=== PATIENT | male | born 2000 | race Hispanic/Latino ===

== ENCOUNTER 2022-03-11 23:13 | Inpatient (IN) | payer OTHER ==
[~2022-03-11] VITALS: Ht 188 cm; Wt 121.0 kg
[2022-03-12 00:37] LABS: HEMATOCRIT 43.7 % (42.0-52.0); HEMOGLOBIN 15.5 g/dl (13.5-17.5); MEAN CORPUSCULAR HEMOGLOBIN 29.9 pg (27.0-33.0); MEAN CORPUSCULAR HGB CONC 35.5 g/dl (32.0-36.5); MEAN CORPUSCULAR VOLUME 84.2 fl (80.0-96.0); PLATELET COUNT, AUTOMATED 282 10^3/uL (150-450); RED BLOOD COUNT 5.19 10^6/uL (4.30-6.10); WHITE BLOOD COUNT 8.5 10^3/uL (4.0-10.0)
[2022-03-12 00:41] LABS: AMPHETAMINES LEVEL URINE NEGATIVE (NEGATIVE); BARBITURATES URINE NEGATIVE (NEGATIVE); BENZODIAZEPINES URINE NEGATIVE (NEGATIVE); CANNABINOIDS URINE NEGATIVE (NEGATIVE); COCAINE METABOLITE URINE NEGATIVE (NEGATIVE); METHADONE URINE NEGATIVE (NEGATIVE); OPIATES URINE NEGATIVE (NEGATIVE); PHENCYCLIDINE URINE NEGATIVE (NEGATIVE)
[2022-03-12 01:10] LABS: RSV AMPLIFICATION NEGATIVE (NEGATIVE)
[2022-03-12 01:41] LABS: ACETAMINOPHEN LEVEL < 2.0 UG/ML (10.0-30.0); ALBUMIN 4.1 GM/DL (3.2-5.2); ALT/SGPT 30 U/L (12-78); BILIRUBIN,DIRECT 0.1 MG/DL (0.0-0.2); BILIRUBIN,TOTAL 0.5 MG/DL (0.2-1.0); BLOOD UREA NITROGEN 16 MG/DL (7-18); CALCIUM LEVEL 8.8 MG/DL (8.5-10.1); CARBON DIOXIDE LEVEL 23 MEQ/L (21-32); CHLORIDE LEVEL 109 MEQ/L (98-107); CREATININE FOR GFR 1.09 MG/DL (0.70-1.30); ETHYL ALCOHOL (ETHANOL) 0.003 % (0.000-0.010); GLUCOSE, FASTING 105 MG/DL (70-100); POTASSIUM SERUM 3.8 MEQ/L (3.5-5.1); SALICYLATE LEVEL < 1.7 MG/DL (5.0-30.0); SODIUM LEVEL 139 MEQ/L (136-145); TOTAL PROTEIN 7.7 GM/DL (6.4-8.2)
[2022-03-12] MEDS ORDERED: HOME MED LIST COMPLETE! XX SCH (06:20)
[2022-03-13] MEDS ORDERED: MAALOX 30 ML SUSP *UDC PO PRN (13:05)
[2022-03-13] MEDS ORDERED: IBUPROFEN 400MG TAB PO PRN (13:05)
[2022-03-13] MEDS ORDERED: OLANZapine ORAL DISINTEGRATING TAB 5MG PO PRN (13:05)
[2022-03-13] MEDS ORDERED: MOM 30ML SUSPENSION UDC PO PRN (13:05)
[2022-03-13 17:55] VITALS: BP 162/91
[2022-03-14 06:27] VITALS: BP 127/70
[2022-03-14] MEDS: VENLAFAXINE **XR** 37.5 MG CAPSULE PO SCH (11:05)
[2022-03-14 16:53] VITALS: BP 141/75
[2022-03-14] MEDS: traZODone 50 MG TAB PO PRN (23:02)
[2022-03-15 06:53] VITALS: BP 124/78
[2022-03-15] MEDS: VENLAFAXINE **XR** 37.5 MG CAPSULE PO SCH (08:51)
[2022-03-15 18:39] VITALS: BP 125/69
[2022-03-15] MEDS: traZODone 50 MG TAB PO PRN (23:01)
[2022-03-16 07:02] VITALS: BP 135/66
[2022-03-16] MEDS: VENLAFAXINE **XR** 75MG CAPSULE PO SCH (09:03)
[2022-03-16 16:19] VITALS: BP 126/71
[2022-03-17 06:30] VITALS: BP 142/93
[2022-03-17] MEDS: VENLAFAXINE **XR** 75MG CAPSULE PO SCH (09:12)
[2022-03-17 16:48] VITALS: BP 130/80
[2022-03-18] MEDS: traZODone 50 MG TAB PO PRN ×2 (00:04→23:05)
[2022-03-18 06:21] VITALS: BP 146/79
[2022-03-18] MEDS: VENLAFAXINE **XR** 75MG CAPSULE PO SCH (09:21)
[2022-03-18 17:17] VITALS: BP 148/76
[2022-03-18 17:18] VITALS: BP 148/76
[2022-03-19 06:30] VITALS: BP 119/79
[2022-03-19] MEDS ORDERED: VENL75CA47 PO (08:44)
[2022-03-19] MEDS: VENLAFAXINE **XR** 75MG CAPSULE PO SCH (09:12)
== END 2022-03-19 13:31 | disposition home or self-care (01) | DRG 885 ==
LOC: M ED 23:13 → M ED INP 03-13 13:04 → M PSY 03-13 18:04
PROVIDERS: ADMIT Psychiatry & Neurology Psychiatry; ATTEND Psychiatry & Neurology Psychiatry
DX: F32.1 Major depressive disorder, single episode, moderate (principal); R45.851 Suicidal ideations; Z91.82 Personal history of military deployment; Z56.6 Other physical and mental strain related to work

== ENCOUNTER 2022-05-11 21:36 | Inpatient (IN) | payer OTHER ==
[~2022-05-11] VITALS: Ht 188 cm; Wt 118.4 kg
[~2022-05-11 21:36] MED LIST: VENL75CA47 PO
[2022-05-11 22:26] LABS: HEMATOCRIT 44.1 % (42.0-52.0); HEMOGLOBIN 15.5 g/dl (13.5-17.5); MEAN CORPUSCULAR HEMOGLOBIN 29.6 pg (27.0-33.0); MEAN CORPUSCULAR HGB CONC 35.1 g/dl (32.0-36.5); MEAN CORPUSCULAR VOLUME 84.3 fl (80.0-96.0); PLATELET COUNT, AUTOMATED 278 10^3/uL (150-450); RED BLOOD COUNT 5.23 10^6/uL (4.30-6.10); WHITE BLOOD COUNT 8.8 10^3/uL (4.0-10.0)
[2022-05-11 22:53] LABS: AMPHETAMINES LEVEL URINE NEGATIVE (NEGATIVE); BARBITURATES URINE NEGATIVE (NEGATIVE); BENZODIAZEPINES URINE NEGATIVE (NEGATIVE); CANNABINOIDS URINE NEGATIVE (NEGATIVE); COCAINE METABOLITE URINE NEGATIVE (NEGATIVE); METHADONE URINE NEGATIVE (NEGATIVE); OPIATES URINE NEGATIVE (NEGATIVE); PHENCYCLIDINE URINE NEGATIVE (NEGATIVE)
[2022-05-11 22:55] LABS: RSV AMPLIFICATION NEGATIVE (NEGATIVE)
[2022-05-11 23:07] LABS: ACETAMINOPHEN LEVEL < 2.0 UG/ML (10.0-30.0); ALBUMIN 4.2 GM/DL (3.2-5.2); ALT/SGPT 32 U/L (12-78); BILIRUBIN,DIRECT 0.2 MG/DL (0.0-0.2); BILIRUBIN,TOTAL 0.7 MG/DL (0.2-1.0); BLOOD UREA NITROGEN 17 MG/DL (7-18); CALCIUM LEVEL 8.9 MG/DL (8.5-10.1); CARBON DIOXIDE LEVEL 23 MEQ/L (21-32); CHLORIDE LEVEL 107 MEQ/L (98-107); ETHYL ALCOHOL (ETHANOL) < 0.003 % (0.000-0.010); GLOMERULAR FILTRATION RATE > 60.0 (>60); GLUCOSE, FASTING 104 MG/DL (70-100); POTASSIUM SERUM 3.9 MEQ/L (3.5-5.1); SALICYLATE LEVEL < 1.7 MG/DL (5.0-30.0); SODIUM LEVEL 137 MEQ/L (136-145); THYROID STIMULATING HORMONE 0.491 uIU/ML (0.358-3.740); TOTAL PROTEIN 7.5 GM/DL (6.4-8.2)
[2022-05-11] MEDS ORDERED: MAALOX 30 ML SUSP *UDC PO PRN (23:25)
[2022-05-11] MEDS ORDERED: hydrOXYzine 50 MG TAB PO PRN (23:25)
[2022-05-11] MEDS ORDERED: MOM 30ML SUSPENSION UDC PO PRN (23:25)
[2022-05-11] MEDS ORDERED: ACETAMINOPHEN TAB 650MG DOSE (2X325MG) PO PRN (23:25)
[2022-05-11] MEDS ORDERED: traZODone 50 MG TAB PO PRN (23:25)
[2022-05-11] MEDS ORDERED: HOME MED LIST COMPLETE! XX SCH (23:40)
[2022-05-12 01:06] VITALS: BP 144/80
[2022-05-12 06:38] VITALS: BP 149/69
[2022-05-12] MEDS ORDERED: INFLUENZA QUADRIVALENT PF VACCINE 0.5ML SYRINGE IM.IMMUN ONE (09:00)
[2022-05-12 16:24] VITALS: BP 132/84
[2022-05-13 06:28] VITALS: BP 119/67
[2022-05-13 16:17] VITALS: BP 140/69
[2022-05-14 06:10] VITALS: BP 107/66
[2022-05-14 18:11] VITALS: BP 141/70
[2022-05-15 06:27] VITALS: BP 127/64
== END 2022-05-15 13:48 | disposition home or self-care (01) | DRG 885 ==
LOC: EDUNIT# 21:36 → M ED 21:36 → EDBD 21:36 → M ED INP 23:24 → M PSY 05-12 00:29
PROVIDERS: ADMIT Student in an Organized Health Care Education/Training Program; ATTEND Psychiatry & Neurology Psychiatry
DX: F32.1 Major depressive disorder, single episode, moderate (principal); F41.8 Other specified anxiety disorders; Z91.51 Personal history of suicidal behavior; Z91.14 Patient's other noncompliance with medication regimen; Z20.822 Contact with and (suspected) exposure to COVID-19; Z88.8 Allergy status to other drugs, medicaments and biological substances; Z90.49 Acquired absence of other specified parts of digestive tract; Z63.8 Other specified problems related to primary support group